=== PATIENT | female | born 1990 | race Caucasian/White ===

== ENCOUNTER 2017-11-04 11:00 | Emergency (ER) | payer OTHER ==
[~2017-11-04] VITALS: Ht 167.6 cm; Wt 81.0 kg
[~2017-11-04 11:00] MED LIST: CLON1TAB PO; LAMO100 PO; LAMO150 PO
[2017-11-04 11:11] VITALS: BP 111/69; PULSE 92; RESP 17; TEMP 98.3; O2SAT 99
[2017-11-04] MEDS ORDERED: CLON0.5T PO (11:30)
[2017-11-04] MEDS ORDERED: LAMI200T PO ×2 (11:30)
[2017-11-04] MEDS ORDERED: AZIT250T3 PO (11:34)
--- NOTE | 2017-11-04 11:35 | PD ---
HPI Chief Complaint: Cold / Flu Symptoms Time Seen by Provider: 11:19 Travel History International Travel<30 days: No Contact w/Intl Traveler<30days: No Traveled to known affect area: No History of Present Illness HPI This is a 27-year-old female who is developmentally delayed, history of seizure disorder, CVA, here for evaluation of cough with colored sputum. History is obtained primarily through her parents. They report that she had nasal congestion, sore throat, cough for the last week. Yesterday evening they noticed colored sputum production. They deny fever or chills. Symptom severity is moderate. No aggravating or alleviating factors. PFSH Past Medical History Cardiovascular Problems: Yes (RUPTTURED R LEG ARTERY) Cerebrovascular Accident: Yes Developmental Delay: Yes Diminished Hearing: No Gastrointestinal Disorders: Yes (BOWEL OBSTRUCTION 2002) Genitourinary: Yes (R KIDNEY 20% EFFICIENT) Musculoskeletal: Yes (WHEELCHAIR BOUND SINCE COLOSTOMY SURGERY.) Neurologic: Yes (DEVELOPMENTALLY DELAYED.) Immunizations Current: Yes Seizures: Yes Past Surgical History Abdominal Surgery: Yes (BOWEL RESECTION WITH COLOSTOMY ) Appendectomy: Yes Eye Surgery: Yes (B/L) Genitourinary Surgery: Yes (R NEPHRECTOMY) Social History Alcohol Use: No Tobacco Use: No Substance Use: No Allergies-Medications (Allergen,Severity, Reaction): Coded Allergies: oxcarbazepine (Unverified Allergy, Severe, RASH, 11/04/17) phenytoin (Unverified Allergy, Severe, RASH, 11/04/17) Reported Meds & Prescriptions Reported Meds & Active Scripts Active Reported Lamictal (Lamotrigine) 200 Mg Tab 325 Mg PO DAILYAC Lamictal (Lamotrigine) 200 Mg Tab 400 Mg PO HS Clonazepam 0.5 Mg Tab 0.5 Mg PO DIRECTED Clonazepam 1 Mg Tab 0.5 Mg PO INTERMITTENT Lamictal (Lamotrigine) 100 Mg Tab 325 Mg PO DAILY Lamictal (Lamotrigine) 150 Mg Tab 400 Mg PO HS Review of Systems Except as stated in HPI: all other systems reviewed are Neg General / Constitutional: No: Fever Eyes: No: Visual changes HENT: No: Headaches Cardiovascular: No: Chest Pain or Discomfort Respiratory: Positive: Cough Gastrointestinal: No: Abdominal Pain Genitourinary: No: Dysuria Physical Exam Narrative GENERAL: Alert and well-appearing female. No distress. SKIN: Warm and dry. HEAD: Normocephalic. EYES: No scleral icterus. No injection or drainage. NECK: Supple, trachea midline. No JVD or lymphadenopathy. CARDIOVASCULAR: Regular rate and rhythm without murmurs, gallops, or rubs. RESPIRATORY: Breath sounds equal bilaterally. No accessory muscle use. GASTROINTESTINAL: Abdomen soft, non-tender, nondistended. Data Data Last Documented VS Vital Signs Date Time Temp Pulse Resp B/P (MAP) Pulse Ox O2 Delivery O2 Flow Rate FiO2 11/04/17 11:11 98.3 92 17 111/69 (83) 99 MDM Medical Decision Making Medical Screen Exam Complete: Yes Emergency Medical Condition: Yes Differential Diagnosis Influenza, bronchitis, pneumonia, URI Narrative Course 27-year-old female here with productive cough and colored sputum. She is nontoxic appearing. Her vital signs are stable. She'll be treated for bronchitis Diagnosis Primary Impression: Bronchitis Referrals: Primary Care Physician Additional Instructions: Antibiotics as prescribed. Rest and stay well hydrated. Follow-up with primary doctor. Scripts Azithromycin (Azithromycin) 250 Mg Tab 250 MG PO DIRECTED for Infection, #6 TAB 0 Refills Take 2 tabs (500 mg) on day 1 then 1 tab daily x 4 days. Prov: Aleida Bear 11/04/17 Disposition: 01 DISCHARGE HOME Condition: Stable Aleida Bear Nov 04, 2017 11:34
== END 2017-11-04 11:56 | disposition home or self-care (01) ==
LOC: PHEFT 11:00
DX: J40 Bronchitis, not specified as acute or chronic (principal); G40.909 Epilepsy, unspecified, not intractable, without status epilepticus; Z86.73 Personal history of transient ischemic attack (TIA), and cerebral infarction without residual deficits
CPT/HCPCS: 99283